=== PATIENT | male | born 1985 | race Caucasian/White ===

== ENCOUNTER → 2016-12-19 | Outpatient (CLI) | payer OTHER ==
[2016-12-19 17:47] LABS: BASO % 0.3 %; BASO ABS # 0.05 K/uL (0-0.2); COMPLETE YES; EOS % 0.4 %; HEMATOCRIT 51.5 % (42-52); IG% 0.7 %; LYMPH % 12.2 %; MEAN CELL VOLUME 95.5 fL (80-100); MEAN CORPUSCULAR HEMOGLOBIN 33.2 pg (25-34); MEAN CORPUSCULAR HGB CONC 34.8 g/dl (32-36); MEAN PLATELET VOLUME 9.2 fL (7.4-10.4); NEUT % 78.4 %; PLATELET COUNT 245 K/uL (130-400); RED BLOOD COUNT 5.39 M/uL (4.7-6.1); WHITE BLOOD COUNT 19.63 K/uL (4.8-10.8)
[2016-12-19 18:11] LABS: ALT/SGPT 57 U/L (12-78); C-REACTIVE PROTEIN < 0.29 mg/dl (0-0.29)
[2016-12-19 18:14] LABS: ALKALINE PHOSPHATASE 38 U/L (45-117); AST/SGOT 31 U/L (15-37); RHEUMATOID FACTOR < 10.0 U/mL (0-15)
[2016-12-24 05:19] LABS: ANTI-CENTROMERE AB <1.0 NEG AI (<1.0 NEG); ANTI-SS-A <1.0 NEG AI (<1.0 NEG); ANTI-SS-B <1.0 NEG AI (<1.0 NEG); DNA ds CRITHIDIA NEGATIVE (NEGATIVE); Sm Antibody <1.0 NEG AI (<1.0 NEG)
== END | disposition home or self-care (01) ==
LOC: C.LAB1850 16:13
PROVIDERS: ATTEND Internal Medicine Rheumatology
DX: R74.8 Abnormal levels of other serum enzymes (principal); Z79.52 Long term (current) use of systemic steroids; Z79.899 Other long term (current) drug therapy; M33.20 Polymyositis, organ involvement unspecified; R76.8 Other specified abnormal immunological findings in serum